=== PATIENT | male | born 1970 | race Two or more races ===

== ENCOUNTER 2019-03-31 07:32 | Emergency (ER) | payer OTHER ==
[~2019-03-31] VITALS: Ht 165.1 cm; Wt 64.4 kg
--- NOTE | 2019-03-31 07:42 | NUR ---
Patient [id number] from home, c/o lower back pain, denies any injury/trauma. On room air, breathing evenly and unlabored. Connected to the monitor and pulse ox. kept comfortable, will continue to monitor accordingly. Awaiting for MD for eval.
[2019-03-31] MEDS ORDERED: KETOROLAC TROMETHAMINE INJ 30 MG/ML VIAL IV ONE (08:00)
[2019-03-31] MEDS ORDERED: ONDANSETRON HCL/PF 4 MG/2 ML VIAL ONE ×2 (08:01→09:24)
[2019-03-31] MEDS ORDERED: MORPHINE SULFATE INJ 4 MG/ML DISP.SYRIN ONE ×2 (08:01→09:24)
[2019-03-31] MEDS ORDERED: KETOROLAC TROMETHAMINE 15 MG/ML VIAL ONE (08:01)
--- NOTE | 2019-03-31 08:14 | NUR ---
URINE SAMPLE SENT TO LAB
[2019-03-31] MEDS: MORPHINE SULFATE INJ 2 MG/ML DISP.SYRIN IV ONE ×2 (08:15→09:33)
[2019-03-31] MEDS: ONDANSETRON HCL/PF 4 MG/2 ML VIAL IVP ONE ×2 (08:15→09:32)
--- NOTE | 2019-03-31 08:22 | NUR ---
WHEELED OUT VIA [facility]NEY FOR CT SCAN
[2019-03-31 08:31] LABS: APPEARANCE,URINE Clear (CLEAR); BILIRUBIN,URINE Negative (NEGATIVE); BLOOD, URINE Negative Ery/uL (NEGATIVE); COLOR,URINE Yellow (YELLOW); KETONES,URINE Negative (NEGATIVE); LEUKOCYTE ESTERASE ,URINE Negative (NEGATIVE); NITRITE, URINE Negative (NEGATIVE); PROTEIN,URINE Negative (NEGATIVE); UGLUCOSE Negative (NEGATIVE)
[2019-03-31] MEDS ORDERED: METHOCARBAMOL (750MG) 750 MG TABLET PO SCH (09:00)
--- NOTE | 2019-03-31 09:50 | NUR ---
IV removed. Catheter intact and site benign. Pressure and 4x4 applied to site. No bleeding noted.Patient discharged to home in stable condition. Written and verbal after care instructions given. Patient verbalizes understanding of instruction.
[2019-03-31 09:51] VITALS: BP 132/77
== END 2019-03-31 09:52 | disposition home or self-care (01) ==
LOC: EDBD 07:35 → ER 07:35
DX: S39.012A Strain of muscle, fascia and tendon of lower back, initial encounter (principal); E78.5 Hyperlipidemia, unspecified; I10 Essential (primary) hypertension; X58.XXXA Exposure to other specified factors, initial encounter; Y93.89 Activity, other specified; Y92.89 Other specified places as the place of occurrence of the external cause; Y99.8 Other external cause status
CPT/HCPCS: 72131; 81001; 96374; 96375; 99284; J1885; J2270; J2405; 81000-TC